=== PATIENT | male | born 2005 | race Caucasian/White ===

== ENCOUNTER → 2025-01-16 07:20 | Outpatient (REF) | payer OTHER, SELFPAY | LOC: RCS 07:20 | PROVIDERS: ATTENDING PHYSICIAN Physician Assistant; FAMILY PHYSICIAN Nuclear Medicine Nuclear Cardiology | DX: R06.02 Shortness of breath (principal); R07.89 Other chest pain | CPT/HCPCS: 93225; 93226; 93306 ==

== ENCOUNTER 2025-03-01 06:40 | Day surgery (SDC) | payer OTHER, SELFPAY ==
[2025-03-01] VITALS (10 sets, daily range): BP systolic 125–134; BP diastolic 58–79; BMI 23.9
--- NOTE | 2025-03-01 11:28 | SUR.OPER ---
Patient arrived at 0930. At 1100 patients mother was asking what time patient would be taken back to the OR. Patient asking also and was very upset about the wait. Immediately got clinic office manager Chema QUEZADA at approximately 1100 and she spoke with patient
and his mother. They then requested Gita Director of OR to speak with her about delay. Gita came over to patients room at 1125. Patients mother asking about what foods he can eat post op and a copy of the discharge medications was made and given
to mother by Chema. Patient offered warm blankets, a bathroom trip and whatever else he needed. Dr. López also came over to talk with patient and his mother at 1115 to explain the delay. (Patient and his mother aware that another patient is
before him and they have not started yet). Will monitor patient.
--- NOTE | 2025-03-01 11:43 | PTCARENOTE ---
Patient on arrival was found to be vaping in his SDS bed. Told patient that he cant vape prior to surgery. Anesthesiologist Nathanale Lewis made aware of the vaping. Patient willing to put his vape pen away but did state that it calms him down. Will
monitor patient.
--- NOTE | 2025-03-01 13:14 | PTCARENOTE ---
In the room to take patient to the OR and he handed RN the vape pen that was taken from him on arrival. Patient went in his belongings after being told not to vape and took the pen out and used it anyway. Patient was acting erratic and silly when
talking with him. Asked patient directly what was in the vape pen and he stated 'I dont know.' Patient then asked if their was marijuana in the pen and he said no. Told patient that the staff needs to know because he is getting anesthesia.
Rene made aware and is at the bedside to see patient. He told patient that he absolutely can not smoke or vape after the surgery or he will bleed. Patient is fully aware and told several times by surgeon. Dr. López ok with proceeding and patient
taken to the OR. Will monitor patient.
--- NOTE | 2025-03-01 14:00 | PTCARENOTE ---
Dr. López called patients mom after procedure. He reiterated that patient should NOT smoke or vape after his procedure at home. Dr. López said mom expressed understanding.
[2025-03-01] MEDS: DILAUDID 0.25 MG IV (14:07)
== END 2025-03-01 15:11 | disposition home or self-care (01) ==
LOC: SDS 06:40
PROVIDERS: ATTENDING PHYSICIAN Otolaryngology
DX: J35.1 Hypertrophy of tonsils (principal)
CPT/HCPCS: 42826; 88304